=== PATIENT | male | born 1980 | race Two or more races ===

== ENCOUNTER 2017-08-19 20:16 | Emergency (ER) | payer OTHER ==
[2017-08-19 23:00] LABS: ADD MAN DIFF? NO
[2017-08-19 23:02] LABS: WHITE BLOOD COUNT 10.1 10^3/ul (4.8-10.8)
[2017-08-19 23:02] LABS: BASOPHILS % 0.4 % (0.0-2.0); EOSINOPHILS # 0.1 10^3/ul (0.0-0.5); EOSINOPHILS % 1.1 % (0.0-7.0); HEMATOCRIT 49.4 % (42.0-52.0); HEMOGLOBIN 17.1 g/dl (14.0-18.0); LYMPHOCYTES # 3.1 10^3/ul (0.8-2.9); LYMPHOCYTES % 30.7 % (15.0-51.0); MEAN CORPUSCULAR HEMOGLOBIN 28.5 pg (29.0-33.0); MEAN CORPUSCULAR HGB CONC 34.6 g/dl (32.0-37.0); MEAN CORPUSCULAR VOLUME 82.3 fl (82.0-101.0); MEAN PLATELET VOLUME 9.5 fl (7.4-10.4); MONOCYTE # 0.7 10^3/ul (0.3-0.9); MONOCYTES % 6.8 % (0.0-11.0); NEUTROPHIL # 6.1 10^3/ul (1.6-7.5); NEUTROPHILS % 60.6 % (39.0-77.0); PLATELET COUNT 225 10^3/UL (140-415); RED CELL DISTRIBUTION WIDTH 12.2 % (11.5-14.5)
[2017-08-19 23:21] LABS: ALANINE AMINOTRANSFERASE 46 IU/L (13-69); ALBUMIN 4.6 g/dl (3.3-4.9); ALBUMIN/GLOBULIN RATIO 1.31; ALKALINE PHOSPHATASE 68 IU/L (42-121); ANION GAP 15 (8-16); ASPARTATE AMINO TRANSFERASE 23 IU/L (15-46); BILIRUBIN,INDIRECT 0.4 mg/dl (0-1.1); BILIRUBIN,TOTAL 0.4 mg/dl (0.2-1.3); BLOOD UREA NITROGEN 14 mg/dl (7-20); CALCIUM 9.4 mg/dl (8.4-10.2); CARBON DIOXIDE 26 mmol/L (21-31); CHLORIDE 105 mmol/L (97-110); CREATININE 0.74 mg/dl (0.61-1.24); GLUCOSE 107 mg/dl (70-220); POTASSIUM 4.3 mmol/L (3.5-5.1); SODIUM 142 mmol/L (135-144); TOTAL PROTEIN 8.1 g/dl (6.1-8.1)
[2017-08-19 23:22] LABS: INR 0.98; PROTIME 13.1 Sec (11.9-14.9)
[2017-08-19 23:23] LABS: PARTIAL THROMBOPLASTIN TIME 28.3 Sec (25.0-35.0)
== END 2017-08-20 00:15 | disposition home or self-care (01) ==
LOC: FTE 08-20 00:15
DX: R42 Dizziness and giddiness (principal); H53.8 Other visual disturbances; R55 Syncope and collapse
CPT/HCPCS: 70450; 80053; 85025; 85610; 85730; 99284-25